=== PATIENT | male | born 1975 | race Two or more races ===

== ENCOUNTER → 2016-11-10 | Day surgery (SDC) | payer OTHER ==
[2016-11-06 10:33] VITALS: BMI 30.9
--- NOTE | 2016-11-06 10:42 | SC.ANESEVA ---
Anesthesia Eval & Plan ([facility]) - Providers Surgeon:: Salvador Del Cid - Medications/Allergies Allergies: Allergies No Known Allergies Allergy (Verified 09/25/16 16:08) Home Medications: Home Medication List Hydrocodone/Acetaminophen [Hydrocodon-Acetaminophen 5-325] 1 each PO DIR PRN 11/06/16 [History] Current Medication List: Reviewed - Focused Physical Exam NPO since: Since after Midnight Mallampati: Class II Thyromental Distance: Greater than 3 Neck: Full Range of Motion Dental: Normal - no significant findings Cardiovascular/Chest: Normal (RRR no mumurs or rubs.) Respiratory: Lungs clear. negative: Wheezing Any problems with anesthesia, including nausea and vomiting?: No Any relatives with a history of Malignant Hyperthermia?: No Other: Diagnoses CHRONIC CHOLECYSTITIS (11/10/16) EPIGASTRIC PAIN (11/10/16) Problem List Problem Status Onset Acute cholecystitis Acute Cocaine abuse Acute Well adult exam Acute Allergies Allergy/AdvReac Type Severity Reaction Status Date / Time No Known Allergies Allergy Verified 09/25/16 16:08 Home Medications Medication Instructions Recorded Last Taken Type Clomiphene Citrate [Serophene] 50 mg PO DAILY 09/25/16 09/24/16 History Lisinopril [Zestril] 10 mg PO DAILY 09/25/16 09/25/16 23:20 History Aspirin [Adult Low Dose Aspirin EC] 81 mg PO DAILY 09/26/16 Unknown History Lovastatin 20 mg PO QHS 09/26/16 Unknown History MetFORMIN, Extended Release 500 mg PO BID 09/26/16 Unknown History [Glucophage Xr] Cephalexin Monohydrate [Keflex] 500 mg PO BID 09/27/16 Unknown History Oxycodone Immediate Release 5 mg PO Q6H PRN 09/27/16 09/27/16 08:32 History [Oxycodone Immediate Release (OxyIR)] Promethazine [Phenergan] 25 mg PO Q6H PRN 09/27/16 Unknown History Hydrocodone/Acetaminophen 1 each PO DIR PRN 11/06/16 Unknown History [Hydrocodon-Acetaminophen 5-325] Height and Weight Patient's height 5 ft 5 in Patient's weight 84.368 kg Weight (Calculated Kilograms) 84.368 BMI 30.9 - Anesthetic Plan Anesthesia Type: General ASA Class: 3 - Focused Review of Systems Cardiac History: Yes: Hx Hypertension, Hx Angina (saw pressing department supervisor 3 weeks ago, Sep 08), Hx Cardiac Disorders HEENT: Yes: Hx Vision Problem (glasses), Other HEENT Problems Respiratory: Yes: Hx Snoring Gastrointestinal: No: Hx Gastrointestinal Disorders Neurological/Musculoskeletal: Yes: Hx Back Pain No: Hx Neurological Disorders Endocrine: Yes: Hx Non-Insulin Dependent Diabetes Blood/Autoimmune: No: Hx AIDS, Hx Hepatitis (type) Smoking Status: Light tobacco smoker (less than 5/day)
[~2016-11-10] MED LIST: BUPIVACAINE 0.25% 30 ML VIAL INF ONE; DEXAMETHASONE 4 MG/ML VIAL IV PRN; DEXAMETHASONE 4 MG/ML VIAL ONE; DIAZEPAM 5 MG TAB PO PRN; FENTANYL 100 MCG/2 ML VIAL IV PRN; FENTANYL 100 MCG/2 ML VIAL ONE; HYDROCODONE 5 MG/ACETAMIN 325 MG TAB PO PRN; IOHEXOL (Omnipaque-300) 30 ml vial INSTILL ONE; KETOROLAC TROMETH 30 MG/ML VIAL IV PRN; KETOROLAC TROMETH 30 MG/ML VIAL ONE; LABETALOL 20 MG/4 ML SYRINGE IV ONE; LABETALOL 20 MG/4 ML SYRINGE IV PRN; LR 1,000 ML IV ONE; LR 1,000 ML IV SCH; MIDAZOLAM 2 MG/2 ML VIAL ONE; NS 1,000 ML IV SCH; NS 250 ML IV SCH; ONDANSETRON HCL 4 MG/2 ML VIAL IV PRN; ONDANSETRON HCL 4 MG/2 ML VIAL ONE; PROPOFOL 200 MG/20 ML VIAL IV ONE; ROCURONIUM 50 MG/5 ML VIAL IV ONE; SCOPOLAMINE TRANSDERMAL PATCH TOP PRN; hydrALAZINE 20 MG/ML VIAL IV PRN
--- NOTE | 2016-11-10 09:06 | HIMOPRPT ---
PROCEDURE: DATE OF PROCEDURE: 11/10/16 PREOPERATIVE DIAGNOSES: Cholecystitis POSTOPERATIVE DIAGNOSES: Cholecystitis. PROCEDURE: Laparoscopic cholecystectomy with intraoperative cholangiogram. SURGEON: Salvador Del Cid MD ANESTHESIA: General. COMPLICATIONS: None. ESTIMATED BLOOD LOSS: <5cc OPERATIVE NOTE: The patient was placed supine on the operative table. After induction of general anesthesia and endotracheal intubation, the patient was prepped and draped in the usual fashion. Time-out was taken. The patient was re- identified and the procedure was verified, and was given pre-operative antibiotics. An infraumbilical incision was made and a 5-mm Optiview trocar was placed without difficulties. The abdomen was insufflated with CO2 until a pressure of 15 mm HG was achieved. The camera was introduced and we inspected the abdominal cavity. The liver was smooth without any nodularities or masses. At this point, we placed two 5 mm ports in the right upper quadrant under direct visualization and an 11-mm port in the epigastric region. We were able to place a grasper on the dome, the other on the infundibulum of the gallbladder. The [place] was dissected using lateral retraction of the infundibulum thus exposing this critical angle between the cystic duct and CBD. The peritoneal attachment around the infundibulum of the gallbladder to the liver was dissected free using electrocautery. Thus giving a partial retrograde dissection. This allowed the visualization of the cystic duct and artery as they entered the gallbladder. Having developed this Critical View of Safety at the triangle of [place] we proceeded with our cholangiogram. A Chávez clamp was placed across the body of the gallbladder, the tip of the catheter was inserted into the infundibulum. We then were able to flush this. Using the C -arm fluoroscopy unit, we performed a cholangiogram. In real time, we saw the passage of contrast throughout the biliary tree, common hepatic, common bile duct, and emptying readily into the duodenum. No filling defects were noted. This was a normal cholangiogram. At this point, the catheter was removed. Clips were placed on the cystic duct and artery and these structures were divided. A PDS loop was placed around the cystic duct stump. We then removed the gallbladder off the liver bed using electrocautery. The liver bed remained completely hemostatic. We removed the gallbladder and placed it into a laparoscopic retrieval bag. We irrigated the operative field and suctioned out the irrigation. We then removed the ports allowing the CO2 to escape. The patient then had the large port site closed at the level of the fascia using #0- Vicryl sutures. The wounds were all irrigated and infiltrated with 0.25% Marcaine. The skin edges were approximated using 4-0 Monocryl and Dermabond. The patient tolerated this well. Sponge, needle, and instrument counts were correct.
--- NOTE | 2016-11-10 09:07 | PCM.DCS92 ---
Discharge Outpatient Note Additional Instructions: INSTRUCTIONS: 11/10/16 Resume home medications Stool softener or laxative of choice as needed Diet: Low Fat Diet Okay to shower tomorrow No Lifting anything 30lbs or greater No driving x4 days (and only if not taking pain medications) Call office for a follow up appointment [phone]
[2016-11-10 09:23] VITALS: TEMP 98.9
[2016-11-10 10:23] VITALS: BP 105/63; PULSE 80
--- NOTE | 2016-11-10 13:00 | SC.ANESPOS ---
Post-Anesthesia Note LOC: Fully Awake Post-Anesthesia Assessment: Awake, Returned to Baseline, Hemodynamically Stable , Pain Control Adequate Phase I & II Recovery Complete: Yes Apparent Anesthesia Complication: No : N - Vital Signs Blood Pressure: 105/63 Pulse: 80 Resp Rate: 16 O2 Sat: 99 Temp: 98.9 F
== END ==
LOC: CPSC 07:01
PROVIDERS: ATTEND Surgery
PROC: 0FT44ZZ Resection of Gallbladder, Percutaneous Endoscopic Approach (ICD-10-PCS; principal; 2016-11-10 07:15)
DX: K81.1 Chronic cholecystitis (principal); I10 Essential (primary) hypertension; E11.9 Type 2 diabetes mellitus without complications; F17.210 Nicotine dependence, cigarettes, uncomplicated; Z79.899 Other long term (current) drug therapy; Z79.84 Long term (current) use of oral hypoglycemic drugs
CPT/HCPCS: 47563; 82962; J1100; J1885; J2250; J2405; J2704; J3010; J3490; Q9967